=== PATIENT | female | born 1980 | race African-American/Black ===

== ENCOUNTER 2021-01-25 16:21 | Emergency (ER) | payer BC, OTHER ==
[2021-01-25] MEDS ORDERED: Orphenadrine 60 MG/2 ML Inj IM STA (16:53)
[2021-01-25] MEDS ORDERED: Ketorolac 30 MG/ML SDV IM ONE (16:53)
--- NOTE | 2021-01-25 16:59 | EDM.PDOC ---
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 On 01-23-21 the patient was at work using a [employer] lift as a [employer] with a 300 pound patient fell out of the [place] the patient fell onto her. She injured her right ankle and her lower back. She was not seen initially. She continues to have pain in her lower mid back. No loss of bowel or bladder. No pain down her legs. No change in the functionality of her lower extremities. She is able to ambulate without difficulty. She also complains of some pain and tenderness with ambulation to the right ankle although she has been ambulating on it without a limp or difficulty. She has not tried anything orally for pain other than a muscle relaxer that she tried one time yesterday. She was at work today and unable to continue her work because she was so uncomfortable in pain. No other recent falls or trauma. No COVID exposure no COVID symptoms. Left Middle Back Pain Score (Numeric/FACES): 9 Right Ankle Pain Score (Numeric/FACES): 9 - Related Data Allergies Allergy/AdvReac Type Severity Reaction Status Date / Time No Known Allergies Allergy Verified 01/25/21 16:32 Home Meds: Home Meds . [No Known Home Meds] 01/25/21 [History] Past Medical History - Past Health History Medical/Surgical History: Denies Medical/Surgical History Social & Family History - Tobacco Use Tobacco Use Status *Q: Never Tobacco User ED ROS GENERAL - Review of Systems Review Of Systems: Comprehensive ROS is negative, except as noted in HPI. ED EXAM,LOWER BACK PAIN/INJURY - Physical Exam Exam: See Below Exam Limited By: No Limitations General Appearance: Alert, WD/WN Eye Exam: Bilateral Eye: EOMI, PERRL Head: Atraumatic, Normocephalic Neck: Normal Inspection Respiratory/Chest: No Respiratory Distress, Lungs Clear, No Accessory Muscle Use, Chest Non-Tender Cardiovascular: Normal Peripheral Pulses, Regular Rate, Rhythm GI/Abdominal: Normal Bowel Sounds, Soft, Non-Tender (Female) Exam: Deferred Rectal (Female) Exam: Deferred Back Exam: Paraspinal Tenderness, Other (No bruising swelling or other signs of trauma to the posterior. ). No: CVA Tenderness (L), CVA Tenderness (R), Vertebral Tenderness Extremities: Normal Range of Motion, No Pedal Edema, Normal Capillary Refill. No: Normal Inspection (She does have tenderness on the medial and lateral malleolus of the right lower extremity. CMS is intact appropriately. There is no bruising swelling ecchymosis. Talar tilt is positive to the right) Neurological: Alert, Normal Mood/Affect, Normal Dorsiflexion, Oriented x 3 DTR - Lower Extremities: 2+: Knee (R), Knee (L), Ankle (R), Ankle (L) Psychiatric: Normal Affect, Normal Mood Skin Exam: Warm, Dry, Intact, Normal Color, No Rash Course - Vital Signs Last Recorded V/S: Last Vital Signs Temp 97.7 F 01/25/21 16:28 Pulse 68 01/25/21 18:55 Resp 14 01/25/21 18:55 BP 129/85 01/25/21 18:55 Pulse Ox 99 01/25/21 18:55 - Orders/Labs/Meds Meds: Medications Discontinued Medications Generic Name Dose Route Start Last Admin Trade Name Nicole PRN Reason Stop Dose Admin Ketorolac Tromethamine 30 mg 01/25/21 16:53 01/25/21 17:06 Ketorolac 30 Mg/Ml Sdv IM 01/25/21 16:54 30 mg ONETIME ONE Administration Orphenadrine Citrate 60 mg 01/25/21 16:53 01/25/21 17:08 Orphenadrine 60 Mg/2 Ml Inj IM 01/25/21 16:54 60 mg NOW STA Administration - Radiology Interpretation Free Text/Narrative:: X-ray of the lumbar spine per radiology shows mild lumbar spondylosis. No acute findings. X-ray of the right ankle negative exam per radiology. - Re-Assessments/Exams Free Text/Narrative Re-Assessment/Exam: 01/25/21 16:59 30 mg of Toradol IM. Norflex 60 mg IM. X-rays ordered. Reviewed the negative x-rays with the patient of her lumbar spine as well as the right ankle. We will place her in a gel splint to the right ankle. Tylenol ibuprofen as needed for pain. See physical therapy for work duty restrictions. Light duty until that time. Discharge directions as below are explained to the patient she was comfortable with this plan and her questions were answered. Departure - Departure Time of Disposition: 18:47 Disposition: Home, Self-Care 01 Clinical Impression: Right ankle sprain Qualifiers: Encounter type: initial encounter Involved ligament of ankle: unspecified ligament Qualified Code(s): S93.401A - Sprain of unspecified ligament of right ankle, initial encounter Lower back pain Qualifiers: Chronicity: acute Back pain laterality: midline Sciatica presence: without sciatica Qualified Code(s): M54.5 - Low back pain - Discharge Information Instructions: Ankle Sprain, [id number], Acute Back Pain, Adult, Pain Medicine Instructions, [id number] Referrals: PCP,None [Primary Care Provider] - Forms: ED Department Discharge Additional Instructions: Tylenol and or Ibuprofen as needed for pain. Light duty at work. Contact physical therapy here tomorrow to make appointment next available for evaluation for back and ankle injury. PT will determine work ability at that time. Return to the ED if new or worsening symptoms. Follow up with PCP in 1 week for recheck. Sepsis Event Note (ED) - Evaluation Sepsis Screening Result: No Definite Risk - Focused Exam Vital Signs: Vital Signs Temp Pulse Resp BP Pulse Ox 01/25/21 18:55 68 14 129/85 99 01/25/21 16:28 97.7 F 83 16 136/87 98
--- NOTE | 2021-01-25 18:40 | CR ---
[id number] RAD/RAD Lumbar Spine 2-3V EXAM: RAD Lumbar Spine 2-3V INDICATION: FALL, INJURY. COMPARISON: None. DISCUSSION: The vertebral bodies are normal in height and alignment with no fracture identified. Mild disc degeneration L3-L4, L4-L5 and L5-S1. IMPRESSION: 1. Mild lumbar spondylosis. No acute findings. Cameron Rivas MD 01/25/21 [id number] Thank you for allowing us to participate in the care of your patient.
--- NOTE | 2021-01-25 18:41 | CR ---
[id number] RAD/RAD Ankle Right 3V Min EXAM: RAD Ankle Right 3V Min INDICATION: FALL, INJURY. COMPARISON: None. DISCUSSION: No fracture, dislocation or other osseous abnormality. IMPRESSION: 1. Negative exam. Cameron Rivas MD 01/25/21 [id number] Thank you for allowing us to participate in the care of your patient.
== END 2021-01-25 19:05 | disposition home or self-care (01) ==
LOC: VM.ED 16:21
DX: S93.401A Sprain of unspecified ligament of right ankle, initial encounter (principal); M54.5 Low back pain; X50.9XXA Other and unspecified overexertion or strenuous movements or postures, initial encounter; Y99.0 Civilian activity done for income or pay
CPT/HCPCS: 72100; 73610-RT; 96372; 99283; 99283-25; J1885; J2360

== ENCOUNTER 2021-07-12 22:12 | Emergency (ER) | payer BC ==
--- NOTE | 2021-07-12 22:32 | EDM.PDOC ---
ED HPI GENERAL MEDICAL PROBLEM - General Chief Complaint: Abdominal Pain Stated Complaint: abd pain Time Seen by Provider: 07/12/21 22:15 Source of Information: Reports: Patient History Limitations: Reports: No Limitations - History of Present Illness INITIAL COMMENTS - FREE TEXT/NARRATIVE: Patient comes into the emergency department with lower pelvic discomfort and right lower abdominal pain. Patient states it has been going on now for approximately 1 week. She describes it as an ache/tenderness sensation in the lower part of her abdomen. She does state that it radiates to both bilateral flank areas. She also states that her breasts are extremely tender. Patient is unknown if she is currently . She states that she does not monitor her follow her menstrual cycle. She states that she has been in a monogamous relationship and she is not concerned regarding STDs. She denies any foul- smelling discharge, frequency, hesitancy, burning, or frequency with urination. Patient states that she has also been nauseated over the course the last 3 to 4 days. Patient states that she has not been running a fever. She denies any chest pain, Shortness of breath dizziness, lightheadedness, vomiting, diaphoresis, or peripheral edema. Patient states she is been relatively healthy. She denies any recent contact with any COVID-19 individuals. Onset: Gradual Duration: Intermittent Location: Reports: Abdomen Quality: Reports: Ache, Throbbing Severity: Moderate Improves with: Reports: None Worsens with: Reports: None Associated Symptoms: Reports: Loss of Appetite. Denies: Chest Pain, Cough, cough w sputum, Diaphoresis, Fever/Chills, Malaise, Rash, Seizure, Shortness of Breath, Syncope Middle Abdomen Pain Score (Numeric/FACES): 10 - Related Data Allergies Allergy/AdvReac Type Severity Reaction Status Date / Time No Known Allergies Allergy Verified 01/25/21 16:32 Home Meds: Home Meds . [No Known Home Meds] 01/25/21 [History] Past Medical History - Past Health History Medical/Surgical History: Denies Medical/Surgical History ED ROS GENERAL - Review of Systems Review Of Systems: Comprehensive ROS is negative, except as noted in HPI. Constitutional: Reports: No Symptoms HEENT: Reports: No Symptoms Respiratory: Reports: No Symptoms Cardiovascular: Reports: No Symptoms Endocrine: Reports: No Symptoms GI/Abdominal: Reports: Nausea. Denies: Anorexia, Bloody Stool, Constipation, Diarrhea, Decreased Appetite, Difficulty Swallowing, Distension, Hematochezia, Melena, Stool Incontinence, Vomiting : Reports: No Symptoms Musculoskeletal: Reports: No Symptoms Skin: Reports: No Symptoms Neurological: Reports: No Symptoms Psychiatric: Reports: No Symptoms Hematologic/Lymphatic: Reports: No Symptoms Immunologic: Reports: No Symptoms ED EXAM, GENERAL - Physical Exam Exam: See Below Exam Limited By: No Limitations General Appearance: Alert, WD/WN, No Apparent Distress Respiratory/Chest: No Respiratory Distress, Lungs Clear, Normal Breath Sounds, No Accessory Muscle Use, Chest Non-Tender Cardiovascular: Normal Peripheral Pulses, Regular Rate, Rhythm, No Edema GI/Abdominal: No Distention, Guarding, Tender. No: Distended, Rigid, Rebound, Hernia Back Exam: Full Range of Motion, CVA Tenderness (L), CVA Tenderness (R). No: Decreased Range of Motion, Muscle Spasm Extremities: Normal Inspection, Normal Range of Motion, Non-Tender Neurological: Alert, Oriented, CN II-XII Intact, Normal Gait Psychiatric: Normal Affect, Normal Mood Course - Vital Signs Last Recorded V/S: Last Vital Signs Temp 36.7 C 07/12/21 22:15 Pulse 78 07/12/21 22:15 Resp 18 07/12/21 22:15 BP 132/84 07/12/21 22:15 Pulse Ox 98 07/12/21 22:15 - Orders/Labs/Meds Orders: Active Orders 24 hr Category Date Time Status Abdomen Pelvis w Cont [CT] Stat Exams 07/12/21 22:22 Taken Labs: Laboratory Tests 07/12/21 07/12/21 07/12/21 Range/Units 22:25 22:25 22:38 WBC 6.1 (4.0-10.0) x10^3/uL RBC 4.97 (4.00-5.50) x10^6/uL Hgb 11.1 L (12.0-16.0) g/dL Hct 33.7 (33.0-47.0) % MCV 67.8 L (78.0-93.0) fL MCH 22.3 L (26.0-32.0) pg MCHC 32.9 (32.0-36.0) g/dL RDW Coeff of Candace 15.7 H (10.0-15.0) % Plt Count 285 (130-400) x10^3/uL Immature Gran % (Auto) 0.20 (0.00-0.43) % Neut % (Auto) 43.0 L (50.0-80.0) % Lymph % (Auto) 46.1 (25.0-50.0) % Morrow % (Auto) 8.4 (2.0-11.0) % Eos % (Auto) 2.0 (0.0-4.0) % Baso % (Auto) 0.3 (0.2-1.2) % Neut # (Auto) 2.6 (1.8-7.7) x10^3/uL Lymph # (Auto) 2.8 (1.0-4.8) x10^3/uL Morrow # (Auto) 0.5 (0.0-0.8) x10^3/uL Eos # (Auto) 0.1 (0.0-0.5) x10^3/uL Baso # (Auto) 0.0 (0.0-0.2) x10^3/uL Immature Gran # (Auto) 0.01 (0.00-0.07) x10^3/uL Sodium (136-145) mmol/L Potassium (3.5-5.1) mmol/L Chloride (98-107) mmol/L Carbon Dioxide (21-32) mmol/L Anion Gap (5-15) mmol/L BUN (7-18) mg/dL Creatinine (0.55-1.02) mg/dL Est Cr Clr Drug Dosing mL/min Estimated GFR (MDRD) Glucose (70-99) mg/dL Calcium (8.5-10.1) mg/dL Corrected Calcium (8.5-10.1) mg/dL Total Bilirubin (0.2-1.0) mg/dL AST (15-37) U/L ALT (14-59) U/L Alkaline Phosphatase (46-116) U/L C-Reactive Protein (<=0.9) mg/dL Total Protein (6.4-8.2) g/dL Albumin (3.4-5.0) g/dL Globulin Albumin/Globulin Ratio Amylase (25-115) U/L Lipase (73-393) U/L Urine Color Yellow (YELLOW) Urine Appearance Clear (CLEAR) Urine pH 6.0 (5.0-8.0) Ur Specific [place] 1.010 Urine Protein Negative (NEGATIVE) mg/dL Urine Glucose (UA) Negative (NEGATIVE) mg/dL Urine Ketones Negative (NEGATIVE) mg/dL Urine Occult Blood Negative (NEGATIVE) Urine Nitrite Negative (NEGATIVE) Urine Bilirubin Negative (NEGATIVE) Urine Urobilinogen 0.2 (0.2) EU/dL Ur Leukocyte Esterase Negative (NEGATIVE) POC Urine HCG, Qual Negative (NEGATIVE) 07/12/21 07/12/21 Range/Units 22:38 22:38 WBC (4.0-10.0) x10^3/uL RBC (4.00-5.50) x10^6/uL Hgb (12.0-16.0) g/dL Hct (33.0-47.0) % MCV (78.0-93.0) fL MCH (26.0-32.0) pg MCHC (32.0-36.0) g/dL RDW Coeff of Candace (10.0-15.0) % Plt Count (130-400) x10^3/uL Immature Gran % (Auto) (0.00-0.43) % Neut % (Auto) (50.0-80.0) % Lymph % (Auto) (25.0-50.0) % Morrow % (Auto) (2.0-11.0) % Eos % (Auto) (0.0-4.0) % Baso % (Auto) (0.2-1.2) % Neut # (Auto) (1.8-7.7) x10^3/uL Lymph # (Auto) (1.0-4.8) x10^3/uL Morrow # (Auto) (0.0-0.8) x10^3/uL Eos # (Auto) (0.0-0.5) x10^3/uL Baso # (Auto) (0.0-0.2) x10^3/uL Immature Gran # (Auto) (0.00-0.07) x10^3/uL Sodium 140 (136-145) mmol/L Potassium 3.8 (3.5-5.1) mmol/L Chloride 104 (98-107) mmol/L Carbon Dioxide 26 (21-32) mmol/L Anion Gap 13.8 (5-15) mmol/L BUN 10 (7-18) mg/dL Creatinine 0.9 (0.55-1.02) mg/dL Est Cr Clr Drug Dosing 69.42 mL/min Estimated GFR (MDRD) > 60 Glucose 111 H (70-99) mg/dL Calcium 7.9 L (8.5-10.1) mg/dL Corrected Calcium 8.4 L (8.5-10.1) mg/dL Total Bilirubin 0.4 (0.2-1.0) mg/dL AST 17 (15-37) U/L ALT 23 (14-59) U/L Alkaline Phosphatase 74 (46-116) U/L C-Reactive Protein < 0.2 (<=0.9) mg/dL Total Protein 7.2 (6.4-8.2) g/dL Albumin 3.4 (3.4-5.0) g/dL Globulin 3.8 Albumin/Globulin Ratio 0.89 Amylase 52 (25-115) U/L Lipase 79 (73-393) U/L Urine Color (YELLOW) Urine Appearance (CLEAR) Urine pH (5.0-8.0) Ur Specific [place] Urine Protein (NEGATIVE) mg/dL Urine Glucose (UA) (NEGATIVE) mg/dL Urine Ketones (NEGATIVE) mg/dL Urine Occult Blood (NEGATIVE) Urine Nitrite (NEGATIVE) Urine Bilirubin (NEGATIVE) Urine Urobilinogen (0.2) EU/dL Ur Leukocyte Esterase (NEGATIVE) POC Urine HCG, Qual (NEGATIVE) Meds: Medications Discontinued Medications Generic Name Dose Route Start Last Admin Trade Name Nicole PRN Reason Stop Dose Admin Iopamidol 100 ml 07/13/21 00:10 Iopamidol 612 Mg/Ml 100 Ml Bottle IVPUSH 07/13/21 00:11 ONETIME ONE - Re-Assessments/Exams Free Text/Narrative Re-Assessment/Exam: 07/13/21 01:06 Pt is feeling better. Resting in the bed. NO acute distress and would like to go home Departure - Departure Time of Disposition: 01:06 Disposition: Home, Self-Care 01 Clinical Impression: Fibroid uterus Qualifiers: Uterine leiomyoma location: unspecified location Qualified Code(s): D25.9 - Leiomyoma of uterus, unspecified - Discharge Information *PRESCRIPTION DRUG MONITORING PROGRAM REVIEWED*: Not Applicable *COPY OF PRESCRIPTION DRUG MONITORING REPORT IN PATIENT CORINE: Not Applicable Instructions: Uterine Fibroids, Iehn-br-Enau Referrals: PCP,None [Primary Care Provider] - Forms: ED Department Discharge Additional Instructions: 1. rest 2. increase your water intake 3. Continue all at home medications 4. Activity and diet as tolerated 5. Can take over the counter Tylenol for any pain or discomfort 6. Follow up with PCP if symptoms continue, return, or progress 7. Call with any questions or concerns 8. Can use ice and heat over the lower abdomen to help with discomfort 9. See OBGYN if symptoms continue or progress Sepsis Event Note (ED) - Focused Exam Vital Signs: Vital Signs Temp Pulse Resp BP Pulse Ox 07/12/21 22:15 36.7 C 78 18 132/84 98 - My Orders Last 24 Hours: My Active Orders 07/12/21 22:22 Abdomen Pelvis w Cont [CT] Stat - Assessment/Plan Last 24 Hours: My Active Orders 07/12/21 22:22 Abdomen Pelvis w Cont [CT] Stat Assessment:: 1. Abdominal pain Plan: 1. Labs completed in the ER. Results reviewed with the patient 2. CT scan completed in the ER. Results reviewed with the patient 3. UA/UC completed. Results reviewed with the patient 4. HGC completed- negative 5. Patient will be transferred to a higher level of care needing further medical and/or surgical interventions 6. Patient and nursing staff was updated regarding the plan of care 7. Patient and family are agreeable to the above plan of care 8. All questions and concerns were addressed with the patient and family prior to discharge
[2021-07-12 22:56] LABS: ANION GAP 13.8 mmol/L (5-15); CHLORIDE,CL 104 mmol/L (98-107); SODIUM,NA 140 mmol/L (136-145)
[2021-07-13] MEDS ORDERED: Iopamidol 612 MG/ML 100 ML Bottle IVPUSH ONE (00:10)
--- NOTE | 2021-07-13 07:49 | CT ---
[id number] CT/CT Abdomen Pelvis W IV EXAM: CT Abdomen Pelvis W IV CLINICAL DATA: PELVIC PAIN COMPARISON: No previous similar exam is available. FINDINGS: The uterus is enlarged and heterogeneous The uterus measures 13 cm in greatest dimension Likely this is a fibroid uterus Consider ultrasound and MRI. The pelvis otherwise shows no mass or adenopathy There is no evidence of appendicitis. The liver and spleen, kidneys and adrenals, pancreas and aorta are unremarkable The gallbladder is not distended IMPRESSION: HETEROGENEOUS FIBROID UTERUS Chiki Sebastian MD 07/13/21 0740 Thank you for allowing us to participate in the care of your patient.
== END 2021-07-13 01:15 | disposition home or self-care (01) ==
LOC: VM.ED 22:12
DX: D25.9 Leiomyoma of uterus, unspecified (principal)
CPT/HCPCS: 36415; 74177; 80053; 81003; 81025; 82150; 83690; 85025; 86140; 99284; 99284-25